=== PATIENT | female | born 2000 | race Caucasian/White ===

== ENCOUNTER 2023-11-18 14:03 | Emergency (ER) | payer MEDICAID ==
[~2023-11-18] VITALS: Ht 149.9 cm; Wt 86.2 kg
[2023-11-18 14:11] VITALS: BP 127/71; PULSE 95; RESP 17; TEMP 98; O2SAT 99
[2023-11-18 16:02] LABS: APPEARANCE,URINE CLEAR (CLEAR); BILIRUBIN,URINE NEGATIVE (NEGATIVE); BLOOD, URINE NEGATIVE (NEGATIVE); COLOR,URINE YELLOW (YELLOW); LEUKOCYTE ESTERASE ,URINE 2+ (NEGATIVE); NITRITE, URINE NEGATIVE (NEGATIVE); PROTEIN,URINE TRACE (NEGATIVE); UGLUCOSE NEGATIVE (NEGATIVE); UROBILINOGEN,URINE 0.2 EU/dL (0.2 - 1)
[2023-11-18 16:10] LABS: BASOPHILS % (AUTO) 0.1 % (0.0-2.0); EOSINOPHILS % (AUTO) 0.4 % (0.0-4.0); HEMATOCRIT 37.7 % (36-48); HEMOGLOBIN 12.7 g/dL (12.0-16.0); LYMPHOCYTES # (AUTO) 2.5 K/uL (2.5-16.5); LYMPHOCYTES % (AUTO) 19.5 % (20.5-51.1); MEAN CORPUSCULAR HEMOGLOBIN 29 pg (27-31); MEAN CORPUSCULAR HGB CONC 34 g/dL (33-37); MEAN CORPUSCULAR VOLUME 86.2 fL (80-94); MONOCYTES # (AUTO) 0.6 K/uL (0.8-1.0); MONOCYTES % (AUTO) 4.7 % (1.7-9.3); NEUTROPHILS # (AUTO) 9.6 K/uL (1.8-7.7); NEUTROPHILS % (AUTO) 75.3 % (42.2-75.2); PLATELET COUNT (AUTO) 252 K/uL (140-450); RED BLOOD CELL COUNT(AUTO) 4.38 MIL/uL (4.20-5.40); RED CELL DISTRIBUTION WIDTH 13.9 % (11.6-13.7); WHITE BLOOD COUNT (AUTO) 12.7 K/uL (4.8-10.8)
[2023-11-18 16:28] LABS: ANION GAP 13.4 (8-16); CALCIUM 9.3 mg/dL (8.5-10.1); CREATININE 0.7 mg/dL (0.6-1.3); POTASSIUM 3.4 mmol/L (3.5-5.1)
[2023-11-18 16:31] LABS: ALBUMIN 3.8 g/dL (3.4-5.0); BILIRUBIN,DIRECT 0.1 mg/dL (0.0-0.3); TOTAL BILIRUBIN 0.3 mg/dL (0.0-1.0); TOTAL PROTEIN, SERUM 7.8 g/dL (6.4-8.2)
[2023-11-18] MEDS: NACL 0.9% 1,000 ML IV ONE (16:54)
[2023-11-18] MEDS: ONDANSETRON 4 MG/2 ML VIAL IVP ONE (16:58)
[2023-11-18 17:05] LABS: RBC,URINE 0-5 /HPF (0-5); WBC,URINE 16-25 (MOD) /HPF (0-5)
[2023-11-18 17:06] LABS: BACTERIA,URINE >30 (MANY) /HPF (None Seen); MUCUS,URINE None Seen /LPF (None Seen); TRICHOMONAS,URINE None Seen /HPF (None Seen); WHITE BLOOD CELL CASTS,URINE None Seen /LPF (None Seen); YEAST,URINE None Seen /HPF (None Seen)
[2023-11-18] MEDS ORDERED: ONDA-188 PO (17:26)
[2023-11-18] MEDS ORDERED: CEPH-588 PO (18:04)
== END 2023-11-18 18:54 | disposition home or self-care (01) ==
LOC: MED 14:03
DX: O21.0 Mild hyperemesis gravidarum (principal); O23.91 Unspecified genitourinary tract infection in pregnancy, first trimester; R82.71 Bacteriuria; Z3A.08 8 weeks gestation of pregnancy; Z79.899 Other long term (current) drug therapy
CPT/HCPCS: 36415; 80048; 80076; 81001; 81025; 83690; 84702; 85025; 87086; 96361; 96374; 99284; J2405; J7030